=== PATIENT | female | born 1940 | race Caucasian/White ===

== ENCOUNTER → 2019-03-23 | Day surgery (SDC) | payer MEDICARE ==
[~2019-03-23] MED LIST: Bacitracin Oint 15 GM Tube ONE; Lactated Ringers 1,000 ML IV SCH; Lidocaine 1% 30 ML SDV ONE; Lidocaine 1% 4 ML ONE; Lidocaine 1% with EPINEPHrine 1:100,000 20 ML MDV ONE; Lidocaine 1%/Sod Bicarbonate in NS 8.4% 1 ML Syringe IDERM PRN; Propofol 200 MG/20 ML SDV ONE; Sodium Chloride 0.9% 10 ML Syringe FLUSH PRN; ePHEDrine/Normal Saline 25 MG/5 ML Syringe ONE; fentaNYL 100 MCG/2 ML SDV ONE
--- NOTE | 2019-03-23 08:59 | PCM.PREANE ---
Preanesthetic Assessment - Anesthesia/Transfusion/Family Hx Anesthesia History: Prior Anesthesia Without Reaction Family History of Anesthesia Reaction: No - Review of Systems General: Weakness Pulmonary: No Symptoms Cardiovascular: Lightheadedness (with standing), Other (Hypertension, elevated cholesterol) Gastrointestinal: No Symptoms Neurological: Pre-Existing Deficit (Parkinsons. Chronic low back pain, fibromyalgia, right hip pain. Uses a cane and/or a walker to get around. Has had back injections, nothing works for her pain. ), Tremors, Difficulty Walking , Gait Disturbance Other: Reports: None (Anemia), Thyroid Problems, Depression, Anxiety - Physical Assessment NPO Status Date: 03/23/19 NPO Status Time: 00:00 O2 Sat by Pulse Oximetry: 98 Respiratory Rate: 16 Vital Signs: Last Vital Signs Temp 36.8 C 03/23/19 08:00 Pulse 73 03/23/19 08:00 Resp 16 03/23/19 08:00 BP 129/53 L 03/23/19 08:00 Pulse Ox 98 03/23/19 08:00 Height: 1.63 m Weight: 97.069 kg ASA Class: 3 Mental Status: Alert & Oriented x3 Airway Class: Mallampati = 2 Dentition: Reports: Missing Tooth/Teeth (Denitist has been removing some teeth. Patient states her remaining teeth feel solid in her mouth. ), Caries Thyro-Mental Finger Breadths: 2 Mouth Opening Finger Breadths: 3 ROM/Head Extension: Full Lungs: Clear to Auscultation, Normal Respiratory Effort, Decreased Breath Sounds Cardiovascular: Regular Rate, Regular Rhythm - Allergies Allergies/Adverse Reactions: Allergies Allergy/AdvReac Type Severity Reaction Status Date / Time hydrocodone AdvReac Nausea and Verified 03/20/19 10:41 Vomiting - Acknowledgements Anesthesia Type Planned: MAC Pt an Appropriate Candidate for the Planned Anesthesia: Yes Alternatives and Risks of Anesthesia Discussed w Pt/Guardian: Yes Pt/Guardian Understands and Agrees with Anesthesia Plan: Yes Additional Comments: CBC pending. PreAnesthesia Questionnaire HEENT History: Reports: Impaired Vision Cardiovascular History: Reports: High Cholesterol, Hypertension Respiratory History: Reports: None Gastrointestinal History: Reports: None Genitourinary History: Reports: None TIP STRETCHER History: Reports: None Musculoskeletal History: Reports: Back Pain, Chronic, Fibromyalgia, Osteoarthritis, Other (See Below) Other Musculoskeletal History: DJD Neurological History: Reports: Parkinson's Psychiatric History: Reports: Anxiety, Depression, Other (See Below) Other Psychiatric History: insomnia Endocrine/Metabolic History: Reports: Hypothyroidism Hematologic History: 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 Immunologic History: Reports: None Dermatologic History: Reports: None - Past Surgical History Head Surgeries/Procedures: Reports: None HEENT Surgical History: Reports: Cataract Surgery, Tonsillectomy Cardiovascular Surgical History: Reports: None Respiratory Surgical History: Reports: None GI Surgical History: Reports: None Female Surgical History: Reports: Hysterectomy Male Surgical History: Reports: None Endocrine Surgical History: Reports: Other (See Below) Other Endocrine Surgeries/Procedures: radiofrequency ablation Neurological Surgical History: Reports: Other (See Below) Other Neurological Surgeries/Procedures: 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 Musculoskeletal Surgical History: Reports: None Oncologic Surgical History: Reports: Bone Marrow Transplant Dermatological Surgical History: Reports: None - SUBSTANCE USE Smoking Status *Q: Never Smoker Recreational Drug Use History: No - HOME MEDS Home Medications: Home Meds Carbidopa/Levodopa [Rytary ER 36.25 mg-145 mg Cap] 1 cap PO DAILY 03/20/19 [ History] DULoxetine HCl [Duloxetine HCl] 60 mg PO DAILY 03/20/19 [History] Furosemide 40 mg PO DAILY 03/20/19 [History] Levothyroxine 75 mcg PO DAILY 03/20/19 [History] Pramipexole Di-HCl [Mirapex] 1.5 mg PO BID 03/20/19 [History] Primidone [Mysoline] 50 mg PO BID 03/20/19 [History] Rosuvastatin [Crestor] 10 mg PO BEDTIME 03/20/19 [History] Spironolactone 50 mg PO DAILY 03/20/19 [History] diphenhydrAMINE [Benadryl] 50 mg PO BEDTIME PRN 03/20/19 [History] traZODone HCl [Trazodone HCl] 50 mg PO BEDTIME 03/20/19 [History] - CURRENT (IN HOUSE) MEDS Current Meds: Current Medications Lactated Ringer's (Ringers, Lactated) 1,000 mls @ 125 mls/hr IV ASDIRECTED CHRISTINE Stop: 03/23/19 23:00 Last Admin: 03/23/19 08:15 Dose: 125 mls/hr Lidocaine/Sodium Bicarbonate (Buffered Lidocaine 1% In Ns 8.4%) 0.25 ml IDERM ONETIME PRN PRN Reason: Prior to IV Start Stop: 03/23/19 18:00 Last Admin: 03/23/19 08:15 Dose: 0.25 ml Sodium Chloride (Saline Flush) 10 ml FLUSH ASDIRECTED PRN PRN Reason: Keep Vein Open Stop: 03/23/19 18:00 Discontinued Medications Bacitracin (Bacitracin Oint) Confirm Administered Dose 15 gm .ROUTE .STK-MED ONE Stop: 03/23/19 08:41 Ephedrine Sulfate (Ephedrine In Ns) Confirm Administered Dose 25 mg .ROUTE .STK- MED ONE Stop: 03/23/19 08:26 Fentanyl (Sublimaze) Confirm Administered Dose 100 mcg .ROUTE .STK-MED ONE Stop: 03/23/19 08:06 Lidocaine HCl (Xylocaine-Mpf 1%) Confirm Administered Dose 4 mls @ as directed .ROUTE .STK-MED ONE Stop: 03/23/19 08:05 Lidocaine HCl (Xylocaine-Mpf 1%) Confirm Administered Dose 30 ml .ROUTE .STK- MED ONE Stop: 03/23/19 08:39 Propofol (Diprivan 20 Ml) Confirm Administered Dose 400 mg .ROUTE .STK-MED ONE Stop: 03/23/19 08:06
--- NOTE | 2019-03-23 11:09 | PCM48HPAN ---
Post Anesthesia Note - EVALUATION WITHIN 48HRS OF ANESTHETIC Vital Signs in Normal Range: Yes Patient Participated in Evaluation: Yes Respiratory Function Stable: Yes Airway Patent: Yes Cardiovascular Function Stable: Yes Hydration Status Stable: Yes Pain Control Satisfactory: Yes Nausea and Vomiting Control Satisfactory: Yes Mental Status Recovered: Yes (no complaints) Pulse Rate: 87 SaO2: 100 Resp Rate: 16 Temperature: 97.6 F Blood Pressure: 131/62
--- NOTE | 2019-03-23 11:10 | PCM.OPNOTE ---
- General Post-Op/Procedure Note Date of Surgery/Procedure: 03/23/19 Operative Procedure(s): EGD with bx colonoscopy with polypectomy excision of two lesion on the back and bone on the left cheek Anesthesia Technique: Local, MAC Primary Surgeon: Johnathan Lopez EBL in mLs: 5 Complications: None Condition: Good
--- NOTE | 2019-03-24 06:58 | OR ---
DATE OF OPERATION: 03/23/2019 SURGEON: Johnathan Lopez MD PREOPERATIVE DIAGNOSIS: Anemia. POSTOPERATIVE DIAGNOSIS: Anemia. OPERATION PERFORMED: Colonoscopy to the ascending colon just above the cecum with polypectomy. ANESTHESIA: IV sedation. FINDINGS: Diminutive polyp just above the ileocecal valve, which was removed by cold biopsy forceps and some mild diverticulosis. There were no angiodysplasias, large tumor masses ulcerations, or notable hemorrhoids. DESCRIPTION OF PROCEDURE: The patient having been taken to the endoscopy room, connected to monitoring equipment for upper GI endoscopy. IV sedation continued for colonoscopy. She was placed in left lateral position. Perianal area showed some external hemorrhoids. Rectal exam showed good sphincter tone. A video Olympus colonoscope was then introduced into the rectum and threaded up to the ascending colon just above the cecum, where a polyp was noted, diminutive. This was removed completely by cold biopsy forceps because of the sigmoid loop, unable to advance the scope into the cecum. Prep was excellent. [place] Cleansing score grade A, and the scope was slowly withdrawn showing the ascending colon, transverse colon, descending colon, sigmoid colon, and rectum. The patient tolerated the procedure and sent to the recovery room in a stable condition. ESTIMATED BLOOD LOSS: MMODAL /[id number]
--- NOTE | 2019-03-24 06:58 | OR ---
DATE OF OPERATION: 03/23/2019 SURGEON: Johnathan Lopez MD PREOPERATIVE DIAGNOSIS: Anemia. POSTOPERATIVE DIAGNOSIS: Anemia. OPERATION PERFORMED: Esophagogastroduodenoscopy with biopsy of the GE junction. ANESTHESIA: IV sedation. FINDINGS: Second portion of the duodenum, duodenal bulb, and pyloric channel were normal. Antrum, body, cardia, fundus, and stomach were unremarkable. GE junction located at 30 cm showed some irritation, which was biopsied. There was no Z- line, but sharp. There was no evidence of Daniels's. Rest of the esophagus was unremarkable. DESCRIPTION OF PROCEDURE: The patient taken to the endoscopy room, placed in a supine position. Having been connected to monitoring and given IV sedation, a bite block was inserted. A video Olympus gastroscope was placed in a posterior oropharynx under direct vision, threaded past the cricopharyngeus down the esophagus and into the stomach. The stomach was insufflated. The scope passed through the pylorus to the second portion of the duodenum and then slowly withdrawn showing normal 2nd portion of the duodenum. Duodenal bulb, pyloric channel, antrum, body, and cardia of the stomach were viewed. J-maneuver was performed showing a small sliding hiatal hernia. At the GE junction, some irritation and some erythema were noted and this was biopsied. The rest of the Z-line was sharp. Rest of the esophagus viewed as the scope withdrawn normal. The patient tolerated the procedure. Specimen was sent to pathology in a labeled container. IV sedation continued for colonoscopy. ESTIMATED BLOOD LOSS: MMODAL /[id number]
--- NOTE | 2019-03-24 07:01 | OR ---
DATE OF OPERATION: 03/23/2019 SURGEON: Johnathan Lopez MD PREOPERATIVE DIAGNOSIS: Multiple skin lesions. POSTOPERATIVE DIAGNOSIS: Multiple skin lesions. OPERATION PERFORMED: Excision and layered closure. ANESTHESIA: Under IV sedation and local anesthetic. ESTIMATED BLOOD LOSS: About 5 mL. DESCRIPTION OF PROCEDURE: The patient was taken to the endoscopy room, connected to monitoring equipment, given IV sedation, and placed in the left lateral position. The lesion in the mid back and mid upper back were prepped with Betadine each and draped off in a sterile fashion. The lesion on the lower back was elliptically incised, proved to be a cyst measuring 1.75 cm. This was removed. The deep tissues were brought together with interrupted 3-0 Vicryl suture and the skin with interrupted 4-0 Prolene suture. Attention directed to the upper back. This lesion was quite irritating to the patient and red. This was then anesthetized with 1% Xylocaine and elliptically incised and sent to pathology. Lesion and margin measuring 1.5 cm. Deep tissues were undermined, brought together with interrupted 3-0 Vicryl suture and the skin with interrupted 4-0 Prolene suture. The patient was then allowed to be placed in the supine position. The lesion on the left cheek was identified. This was prepped with Betadine, draped off in a sterile fashion, and cleansed with Betadine. It was elliptically incised in Rain's lines. Skin edges were undermined, brought together with interrupted 3- 0 Vicryl suture and the skin with interrupted 4-0 Prolene suture. The lesion in the skin measured 2 cm. It was sent to pathology. The patient tolerated the procedure and sedation will be continued for endoscopy. MMODAL /[id number]
== END | disposition home or self-care (01) ==
LOC: JD.SDS 07:48
PROVIDERS: ATTEND Surgery
DX: D12.2 Benign neoplasm of ascending colon (principal); D64.9 Anemia, unspecified; D36.17 Benign neoplasm of peripheral nerves and autonomic nervous system of trunk, unspecified; L72.0 Epidermal cyst; L82.1 Other seborrheic keratosis; I10 Essential (primary) hypertension; E03.9 Hypothyroidism, unspecified; G20 Parkinson's disease; F41.1 Generalized anxiety disorder; F32.9 Major depressive disorder, single episode, unspecified; M79.7 Fibromyalgia; D69.6 Thrombocytopenia, unspecified; E78.00 Pure hypercholesterolemia, unspecified; R73.9 Hyperglycemia, unspecified; H54.7 Unspecified visual loss; Z88.5 Allergy status to narcotic agent; Z79.899 Other long term (current) drug therapy
CPT/HCPCS: 11402; 11442; 12031; 12051; 36415; 43239; 45380; 85025; 88304; 88305; A9270; J2001; J2704; J3010; J7050; J7120; 00813

== ENCOUNTER 2019-08-27 10:50 | Emergency (ER) | payer MEDICARE ==
--- NOTE | 2019-08-27 11:51 | EDM.PDOC ---
<Ifeoma Leonard - Last Filed: 08/27/19 12:41> ED HPI GENERAL MEDICAL PROBLEM - General Chief Complaint: General Stated Complaint: [place]OD [place] LOW Time Seen by Provider: 08/27/19 11:23 Source of Information: Reports: Patient History Limitations: Reports: Other (recent memory issues) - History of Present Illness INITIAL COMMENTS - FREE TEXT/NARRATIVE: 79 year old female who presents to the ED with low hemoglobin. Was seen at [facility] yesterday and lab work was completed. Hemoglobin was low at 7. Pt reports dizziness, shortness of breath x a few months, however she cant remember why she was at the clinic yesterday. Pt has some recent memory issues. Denies palpitations, cough, fever, chills or syncope. Denies arias red blood in her stool or hemorrhoids. She has not been taking her lasix because of frequent incontinence. - Related Data Allergies Allergy/AdvReac Type Severity Reaction Status Date / Time hydrocodone AdvReac Nausea and Verified 08/27/19 11:29 Vomiting Home Meds: Home Meds Carbidopa/Levodopa [Rytary ER 36.25 mg-145 mg Cap] 1 cap PO DAILY 03/20/19 [ History] DULoxetine HCl [Duloxetine HCl] 60 mg PO DAILY 03/20/19 [History] Furosemide 40 mg PO DAILY 03/20/19 [History] Levothyroxine 75 mcg PO DAILY 03/20/19 [History] Pramipexole Di-HCl [Mirapex] 1.5 mg PO BID 03/20/19 [History] Primidone [Mysoline] 50 mg PO BID 03/20/19 [History] Rosuvastatin [Crestor] 10 mg PO BEDTIME 03/20/19 [History] Spironolactone 50 mg PO DAILY 03/20/19 [History] diphenhydrAMINE [Benadryl] 50 mg PO BEDTIME PRN 03/20/19 [History] traZODone HCl [Trazodone HCl] 50 mg PO BEDTIME 03/20/19 [History] Past Medical History HEENT History: Reports: Impaired Vision Cardiovascular History: Reports: High Cholesterol, Hypertension Respiratory History: Reports: None Gastrointestinal History: Reports: None Genitourinary History: Reports: None 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: 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 Musculoskeletal History: Reports: Back Pain, Chronic, Fibromyalgia, Osteoarthritis, Other (See Below) Other Musculoskeletal History: DJD Neurological History: Reports: Parkinson's Psychiatric History: Reports: Anxiety, Depression, Other (See Below) Other Psychiatric History: insomnia Endocrine/Metabolic History: Reports: Hypothyroidism Hematologic History: 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 Immunologic History: Reports: None Dermatologic History: Reports: None - Past Surgical History Head Surgeries/Procedures: Reports: None HEENT Surgical History: Reports: Cataract Surgery, Tonsillectomy Cardiovascular Surgical History: Reports: None Respiratory Surgical History: Reports: None GI Surgical History: Reports: None Female Surgical History: Reports: Hysterectomy Endocrine Surgical History: Reports: Other (See Below) Other Endocrine Surgeries/Procedures: radiofrequency ablation Neurological Surgical History: Reports: Other (See Below) Other Neurological Surgeries/Procedures: 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 Denies: Cough Cardiovascular: Reports: Dyspnea on Exertion, Edema, Lightheadedness. Denies: Chest Pain, Orthopnea, Palpitations, Syncope Endocrine: Reports: Fatigue GI/Abdominal: Denies: Abdominal Pain, Black Stool, Bloody Stool, Constipation, Diarrhea, Melena, Nausea, Vomiting : Reports: Incontinence. Denies: Dysuria Musculoskeletal: Reports: Back Pain Skin: Reports: Pallor Neurological: Reports: Dizziness Psychiatric: Reports: Other (forgetful of recent events) Hematologic/Lymphatic: Reports: Anemia. Denies: Easy Bleeding Immunologic: Reports: No Symptoms ED EXAM, GENERAL - Physical Exam Exam: See Below Exam Limited By: No Limitations General Appearance: Alert, WD/WN, No Apparent Distress Eye Exam: Bilateral Eye: PERRL Ears: Normal External Exam Nose: Normal Inspection Throat/Mouth: Normal Inspection, Normal Lips, Normal Teeth, Normal Oropharynx, Normal Voice, No Airway Compromise Head: Atraumatic, Normocephalic Neck: Normal Inspection, Supple, Non-Tender, Full Range of Motion Respiratory/Chest: No Respiratory Distress, Lungs Clear, Normal Breath Sounds, Chest Non-Tender Cardiovascular: Normal Peripheral Pulses, Regular Rate, Rhythm, Systolic Murmur GI/Abdominal: Normal Bowel Sounds, Soft, Non-Tender, No Abnormal Bruit (Female) Exam: Deferred Rectal (Female) Exam: Normal Exam, Normal Rectal Tone. No: Black Stool, Bloody Stool, Heme - Stool, Hemorrhoids, Tenderness Back Exam: Normal Inspection, Decreased Range of Motion (history of chronic back pain) Extremities: Normal Inspection, Normal Range of Motion, Non-Tender, Pedal Edema , Pallor Neurological: Alert, Oriented, Normal Cognition, Memory Loss Recent Events Psychiatric: Normal Affect, Normal Mood Skin Exam: Warm, Dry, Intact, No Rash, Pallor Course - Vital Signs Last Recorded V/S: Last Vital Signs Temp 98.0 F 08/27/19 11:21 Pulse 79 08/27/19 11:21 Resp 14 08/27/19 11:21 BP 153/59 H 08/27/19 11:21 Pulse Ox 100 08/27/19 11:21 - Orders/Labs/Meds Orders: Active Orders 24 hr Category Date Time Status EKG 12 Lead [EKG Documentation Completion] [RC] STAT Care 08/27/19 11:50 Active Chest 2V [CR] Stat Exams 08/27/19 11:47 Taken ANTIBODY IDENTIFICATION [BBK] Stat Lab 08/27/19 11:45 Results HAPTOGLOBIN [REF] Stat Lab 08/27/19 11:45 Received RED BLOOD CELLS LP [BBK] Stat Lab 08/27/19 11:45 Results TYPE AND SCREEN [BBK] Stat Lab 08/27/19 11:45 Results UA W/MICROSCOPIC [URIN] Stat Lab 08/27/19 14:05 Received Transfuse Red Blood Cells [COMM] Stat Oth 08/27/19 12:26 Ordered Labs: Laboratory Tests 08/27/19 08/27/19 08/27/19 Range/Units 11:45 11:45 11:45 WBC 3.26 L (3.98-10.04) K/mm3 RBC 3.11 L (3.98-5.22) M/mm3 Hgb 5.9 L* D (11.2-15.7) gm/dl Hct 22.6 L (34.1-44.9) % MCV 72.7 L D (79.4-94.8) fl MCH 19.0 L (25.6-32.2) pg MCHC 26.1 L (32.2-35.5) g/dl RDW Std Deviation 47.6 H (36.4-46.3) fL Plt Count 75 L (182-369) K/mm3 MPV 11.3 (9.4-12.3) fl Neut % (Auto) 64.5 (34.0-71.1) % Lymph % (Auto) 23.0 (19.3-51.7) % [place] % (Auto) 10.4 (4.7-12.5) % Eos % (Auto) 1.2 (0.7-5.8) Baso % (Auto) 0.6 (0.1-1.2) % Neut # (Auto) 2.10 (1.56-6.13) K/mm3 Lymph # (Auto) 0.75 L (1.18-3.74) K/mm3 [place] # (Auto) 0.34 (0.24-0.36) K/mm3 Eos # (Auto) 0.04 (0.04-0.36) K/mm3 Baso # (Auto) 0.02 (0.01-0.08) K/mm3 Manual Slide Review Abnormal smear Percent Retic (0.50-1.70) % PT (9.7-12.0) SECONDS INR APTT (22-31) SECONDS Sodium 139 (136-145) mEq/L Potassium 4.9 (3.5-5.1) mEq/L Chloride 106 (98-107) mEq/L Carbon Dioxide 27 (21-32) mEq/L Anion Gap 10.9 (5-15) BUN 21 H (7-18) mg/dL Creatinine 0.9 (0.55-1.02) mg/dL Est Cr Clr Drug Dosing 43.77 mL/min Estimated GFR (MDRD) > 60 (>60) mL/min BUN/Creatinine Ratio 23.3 H (14-18) Glucose 106 (83-115) mg/dL Calcium 9.0 (8.5-10.1) mg/dL Iron 15 L (50-170) ug/dL TIBC 379 (100-400) ug/dL % Saturation 4 L (20-55) % Transferrin 303 (202-364) mg/dL Ferritin (8-252) ng/ml Total Bilirubin 0.7 (0.2-1.0) mg/dL AST 24 (15-37) U/L ALT 11 L (14-59) U/L Alkaline Phosphatase 96 (46-116) U/L Troponin I 0.024 (0.00-0.056) ng/mL Total Protein 6.1 L (6.4-8.2) g/dl Albumin 3.4 (3.4-5.0) g/dl Globulin 2.7 gm/dL Albumin/Globulin Ratio 1.3 (1-2) Vitamin B12 (193-986) pg/ml TSH 3rd Generation 3.985 H (0.358-3.74) uIU/mL Blood Type Gel Antibody Screen Crossmatch 08/27/19 08/27/19 08/27/19 Range/Units 11:45 11:45 11:45 WBC (3.98-10.04) K/mm3 RBC (3.98-5.22) M/mm3 Hgb (11.2-15.7) gm/dl Hct (34.1-44.9) % MCV (79.4-94.8) fl MCH (25.6-32.2) pg MCHC (32.2-35.5) g/dl RDW Std Deviation (36.4-46.3) fL Plt Count (182-369) K/mm3 MPV (9.4-12.3) fl Neut % (Auto) (34.0-71.1) % Lymph % (Auto) (19.3-51.7) % [place] % (Auto) (4.7-12.5) % Eos % (Auto) (0.7-5.8) Baso % (Auto) (0.1-1.2) % Neut # (Auto) (1.56-6.13) K/mm3 Lymph # (Auto) (1.18-3.74) K/mm3 [place] # (Auto) (0.24-0.36) K/mm3 Eos # (Auto) (0.04-0.36) K/mm3 Baso # (Auto) (0.01-0.08) K/mm3 Manual Slide Review Percent Retic 1.79 H (0.50-1.70) % PT (9.7-12.0) SECONDS INR APTT (22-31) SECONDS Sodium (136-145) mEq/L Potassium (3.5-5.1) mEq/L Chloride (98-107) mEq/L Carbon Dioxide (21-32) mEq/L Anion Gap (5-15) BUN (7-18) mg/dL Creatinine (0.55-1.02) mg/dL Est Cr Clr Drug Dosing mL/min Estimated GFR (MDRD) (>60) mL/min BUN/Creatinine Ratio (14-18) Glucose (83-115) mg/dL Calcium (8.5-10.1) mg/dL Iron (50-170) ug/dL TIBC (100-400) ug/dL % Saturation (20-55) % Transferrin (202-364) mg/dL Ferritin (8-252) ng/ml Total Bilirubin (0.2-1.0) mg/dL AST (15-37) U/L ALT (14-59) U/L Alkaline Phosphatase (46-116) U/L Troponin I (0.00-0.056) ng/mL Total Protein (6.4-8.2) g/dl Albumin (3.4-5.0) g/dl Globulin gm/dL Albumin/Globulin Ratio (1-2) Vitamin B12 439 (193-986) pg/ml TSH 3rd Generation (0.358-3.74) uIU/mL Blood Type O NEGATIVE Gel Antibody Screen Positive Crossmatch See Detail 08/27/19 08/27/19 Range/Units 11:45 13:55 WBC (3.98-10.04) K/mm3 RBC (3.98-5.22) M/mm3 Hgb (11.2-15.7) gm/dl Hct (34.1-44.9) % MCV (79.4-94.8) fl MCH (25.6-32.2) pg MCHC (32.2-35.5) g/dl RDW Std Deviation (36.4-46.3) fL Plt Count (182-369) K/mm3 MPV (9.4-12.3) fl Neut % (Auto) (34.0-71.1) % Lymph % (Auto) (19.3-51.7) % [place] % (Auto) (4.7-12.5) % Eos % (Auto) (0.7-5.8) Baso % (Auto) (0.1-1.2) % Neut # (Auto) (1.56-6.13) K/mm3 Lymph # (Auto) (1.18-3.74) K/mm3 [place] # (Auto) (0.24-0.36) K/mm3 Eos # (Auto) (0.04-0.36) K/mm3 Baso # (Auto) (0.01-0.08) K/mm3 Manual Slide Review Percent Retic (0.50-1.70) % PT 11.8 (9.7-12.0) SECONDS INR 1.09 APTT 23 (22-31) SECONDS Sodium (136-145) mEq/L Potassium (3.5-5.1) mEq/L Chloride (98-107) mEq/L Carbon Dioxide (21-32) mEq/L Anion Gap (5-15) BUN (7-18) mg/dL Creatinine (0.55-1.02) mg/dL Est Cr Clr Drug Dosing mL/min Estimated GFR (MDRD) (>60) mL/min BUN/Creatinine Ratio (14-18) Glucose (83-115) mg/dL Calcium (8.5-10.1) mg/dL Iron (50-170) ug/dL TIBC (100-400) ug/dL % Saturation (20-55) % Transferrin (202-364) mg/dL Ferritin 6 L (8-252) ng/ml Total Bilirubin (0.2-1.0) mg/dL AST (15-37) U/L ALT (14-59) U/L Alkaline Phosphatase (46-116) U/L Troponin I (0.00-0.056) ng/mL Total Protein (6.4-8.2) g/dl Albumin (3.4-5.0) g/dl Globulin gm/dL Albumin/Globulin Ratio (1-2) Vitamin B12 (193-986) pg/ml TSH 3rd Generation (0.358-3.74) uIU/mL Blood Type Gel Antibody Screen Crossmatch - Re-Assessments/Exams Free Text/Narrative Re-Assessment/Exam: 08/27/19 12:05 I ordered a CBC, CMP, TSH, TIBC, FERRITIN, IRON, UA, chest xray, Troponin, and EKG. Free Text/Narrative Re-Assessment/Exam: 08/27/19 12:06 Rectal exam performed. Occult slide was negative. No bleeding noted. Free Text/Narrative Re-Assessment/Exam: 08/27/19 12:28 The patient's hemoglobin is 5.9. Two units of PRBC's ordered. 08/27/19 12:42 Retic count, PT, aPTT ordered Departure - Departure Disposition: DC/Tfer to [facility] Clinical Impression: Weakness generalized Anemia Qualifiers: Anemia type: other cause Other causes of anemia: other cause, not classified Qualified Code(s): D64.89 - Other specified anemias - Discharge Information Referrals: Cesia Guthrie NP [Primary Care Provider] - Forms: ED Department Discharge - My Orders Last 24 Hours: My Active Orders 08/27/19 11:45 ANTIBODY IDENTIFICATION [BBK] Stat HAPTOGLOBIN [REF] Stat RED BLOOD CELLS LP [BBK] Stat TYPE AND SCREEN [BBK] Stat 08/27/19 12:26 Transfuse Red Blood Cells [COMM] Stat - Assessment/Plan Last 24 Hours: My Active Orders 08/27/19 11:45 ANTIBODY IDENTIFICATION [BBK] Stat HAPTOGLOBIN [REF] Stat RED BLOOD CELLS LP [BBK] Stat TYPE AND SCREEN [BBK] Stat 08/27/19 12:26 Transfuse Red Blood Cells [COMM] Stat <Jm Jacobs - Last Filed: 08/27/19 14:33> ED HPI GENERAL MEDICAL PROBLEM - History of Present Illness Onset: Gradual Duration: Week(s): Severity: Moderate Improves with: Reports: None Worsens with: Reports: None Associated Symptoms: Reports: Shortness of Breath. Denies: Chest Pain, Cough, Fever/Chills, Headaches, Nausea/Vomiting EKG INTERPRETATION EKG Date: 08/27/19 Time: 11:51 Rhythm: NSR Rate (Beats/Min): 78 [place]: Normal P-Wave: Present QRS: Normal ST-T: Normal QT: Normal Course - Re-Assessments/Exams Free Text/Narrative Re-Assessment/Exam: 08/27/19 14:13 I examined the patient myself and I agree with Ifeoma's assessment and plan. I ordered labs, EKG, and labs. Her EKG shows a NSR with no acute changes. Her CXR shows nothing acute. Her WBC is low at 3.26. Her Hgb is down to 5.9. Yesterday her Hgb was 7. Her platelets are 75. Yesterday they were 79. Her PT and PTT look good. Her CMP looks good. Her troponin was negative. Her TSH was slightly elevated at 3.985. Lab called and the patient has antibodies. They tell me it will be tomorrow night or Saturday before we will have blood. She dropped form 7 to 5.9 in one day. I feel it would be safer to have her in [place] where they have more resources. I called [facility] in [place] and talked with Dr Edwards and she accepted the patient. 08/27/19 14:31 The patient's rectal was guiac negative. She had a bone marrow study done in [place] that looked good. I am not sure why she is anemic at this time. Departure - Departure Time of Disposition: 14:30 Condition: Fair
--- NOTE | 2019-08-28 08:01 | CR ---
Chest: Two views of the chest were obtained. Comparison: Prior chest x-ray of 01/30/18. Heart size and mediastinum are within normal limits. Mitral annulus calcification is partially seen. Lungs are clear with no acute parenchymal change. Bony structures show mild degenerative change within the spine. Impression: 1. Findings which are felt to be incidental as noted above. 2. Nothing acute is appreciated on two-view chest x-ray. Diagnostic code #2
== END 2019-08-27 15:50 ==
LOC: JD.ED 10:50
DX: D64.89 Other specified anemias (principal); I10 Essential (primary) hypertension; E78.00 Pure hypercholesterolemia, unspecified; G20 Parkinson's disease; F32.9 Major depressive disorder, single episode, unspecified; E03.9 Hypothyroidism, unspecified; Z88.5 Allergy status to narcotic agent; Z79.899 Other long term (current) drug therapy; Z79.890 Hormone replacement therapy
CPT/HCPCS: 36415; 71046; 71046-26; 80053; 81001; 82607; 82728; 83010; 83540; 84443; 84466; 84484; 85025; 85045; 85610; 85730; 86850; 86870; 86900; 86901; 93005; 93010; 99285; 99285-25

== ENCOUNTER 2020-11-01 03:17 | Emergency (ER) | payer MEDICARE, OTHER ==
[2020-11-01] MEDS ORDERED: Ondansetron 4 MG/2 ML SDV IVPUSH ONE (04:20)
--- NOTE | 2020-11-01 04:24 | EDM.PDOC ---
<Luis Cisneros - Last Filed: 11/01/20 07:03> ED HPI GENERAL MEDICAL PROBLEM - General Chief Complaint: Abdominal Pain Stated Complaint: ABDOMINAL PAIN Time Seen by Provider: 11/01/20 04:00 Source of Information: Reports: Patient History Limitations: Reports: No Limitations - History of Present Illness INITIAL COMMENTS - FREE TEXT/NARRATIVE: Mrs. Benton is a very pleasant 80-year-old woman who now presents the ED with right-sided abdominal pain that began around 19:00 last night. She is unable to describe the character of the pain, but states that it radiates from her right upper quadrant downward to the right lower quadrant as well his to her right mid-back. She states that the pain waxes and wanes, currently feeling better than prior to her coming to the ED. She states that it may feel better if she takes a deep breath, otherwise, she has not identified any modifiers. She developed nausea around the same time as the pain developed, however, she has not vomited. No recent fever, constipation, diarrhea, or urinary symptoms. No prior similar symptoms. The patient states that she drinks some charcoal solution around 21:00, which did not help, otherwise, no [id number] or home remedies. The patient last ate around 19:00 last night. Here in the ED, the patient's initial BP is found to be elevated at 164/71, otherwise, she is hemodynamically stable, afebrile, saturating 100% on room air. Prior to 19:00 last night, the patient denies having a recent fever, chills, sore throat, ear pain, nasal or sinus congestion, cough, dyspnea, chest pain, palpitations, nausea, vomiting, constipation, diarrhea, abdominal pain, urinary symptoms, recent weight gain or weight loss, recent bloody bowel movements or black bowel movements, recent joint aches, headaches, or rashes. The patient's PCP is Cesia Zheng NP. Her Neurologist is Dr. Coco Martino. Her Donor Processor is Dr. Lance Black. She does not recall the name of her Urologist. She has not received an influenza vaccine this season, and declined an offer to receive one here in the ED. Right Abdomen Pain Score (Numeric/FACES): 8 - Related Data Allergies Allergy/AdvReac Type Severity Reaction Status Date / Time hydrocodone AdvReac Nausea and Verified 11/01/20 04:14 Vomiting Home Meds: Home Meds DULoxetine HCl [Duloxetine HCl] 60 mg PO DAILY 03/20/19 [History] Levothyroxine 100 mcg PO DAILY 03/20/19 [History] Rosuvastatin [Crestor] 10 mg PO BEDTIME 03/20/19 [History] Spironolactone 50 mg PO DAILY 03/20/19 [History] diphenhydrAMINE [Benadryl] 50 mg PO BEDTIME PRN 03/20/19 [History] traZODone HCl [Trazodone HCl] 50 mg PO BEDTIME 03/20/19 [History] Ferrous Sulfate [Ferosul] 1 tab PO DAILY 11/01/20 [History] Hyoscyamine Sulfate [Levsin-Sl] 0.125 mg SL ASDIRECTED #10 tab.subl 11/01/20 [Rx] Pregabalin [Lyrica] 75 mg PO DAILY 11/01/20 [History] Past Medical History HEENT History: Reports: Impaired Vision Cardiovascular History: Reports: High Cholesterol Genitourinary History: Reports: Urinary Incontinence (stress incontinence) Musculoskeletal History: Reports: Osteoarthritis Neurological History: Reports: Other (See Below) (Essential tremor) Psychiatric History: Reports: Anxiety, Depression, Other (See Below) (insomnia, fibromyalgia) Endocrine/Metabolic History: Reports: Hypothyroidism, Obesity/BMI 30+ Hematologic History: 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 - Past Surgical History Head Surgeries/Procedures: Reports: 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) HEENT Surgical History: Reports: Cataract Surgery (bilateral), Tonsillectomy Female Surgical History: Reports: Hysterectomy (complete) Oncologic Surgical History: Reports: Other (See Below) (Bone marrow biopsy) Social & Family History - Tobacco Use Tobacco Use Status *Q: Never Tobacco User - Caffeine Use Caffeine Use: Reports: None - Alcohol Use Alcohol Use History: No - Recreational Drug Use Recreational Drug Use: No - Living Situation & Occupation Living situation: Reports: , Alone Occupation: Retired ED ROS GENERAL - Review of Systems Review Of Systems: Comprehensive ROS is negative, except as noted in HPI. ED EXAM, GI/ABD - Physical Exam Exam: See Below Exam Limited By: No Limitations General Appearance: Alert, WD/WN, No Apparent Distress Eyes: Bilateral: Normal Appearance, EOMI Ears: Normal External Exam, Hearing Grossly Normal Nose: Normal Inspection Throat/Mouth: Normal Inspection, Normal Lips, Normal Voice, No Airway Compromise Head: Atraumatic, Normocephalic Neck: Normal Inspection, Full Range of Motion Respiratory/Chest: No Respiratory Distress, Lungs Clear, Normal Breath Sounds, No Accessory Muscle Use Cardiovascular: Normal Peripheral Pulses, Regular Rate, Rhythm, No Gallop, No JVD, No Murmur, No Rub GI/Abdominal Exam: Normal Bowel Sounds, Soft, No Organomegaly, No Distention, No Abnormal Bruit, No Mass, Tender (Significant, to the right upper quadrant only. Essentially nontender elsewhere. Lockett's sign absent, however, that may have been due to the patient's body habitus.) Back Exam: Normal Inspection, Full Range of Motion. No: CVA Tenderness (L), CVA Tenderness (R) Extremities: Normal Inspection, Normal Range of Motion, No Pedal Edema, Normal Capillary Refill Neurological: Alert, Oriented, Normal Cognition, No Motor/Sensory Deficits Psychiatric: Normal Affect Skin Exam: Warm, Dry, Intact, Normal Color, No Rash Course - Re-Assessments/Exams Free Text/Narrative Re-Assessment/Exam: 11/01/20 04:22 As above, the patient developed right-sided abdominal pain and nausea around 19:00 last night, right around the time she finished eating. She is quite tender to the right upper quadrant. Her presentation is most concerning for acute cholecystitis. I have ordered a work-up that includes an ultrasound of the right upper quadrant, along with blood work, and a CT of the abdomen and pelvis with oral and IV contrast. I have also ordered a swab for the SARS-CoV-2 virus in the event that she requires admission. In the meantime, the patient will be given IV fluid and IV Zofran. She declined an offer for pain medication at this time. 11/01/20 05:36 The patient's CBC is remarkable for thrombocytopenia of 44,000, and is otherwise unremarkable. Her CMP is remarkable for a Cr slightly elevated at 1.3, with a BUN normal at 15. She has mild hyperglycemia of 155. Her TBil is a slightly elevated at 1.2. Her AST is slightly elevated at 38 with an ALT normal at 41, and her alkaline phosphatase is slightly elevated at 126, with the remainder of her CMP being unremarkable. Her magnesium level is within normal limits at 1.9. Her lipase level is within normal limits at 130. Ultrasound of the right upper quadrant is read by [facility] as "Cholelithiasis associated with the positive sonographic Lockett sign. The sonographic findings with [sic] suggest acute cholecystitis. Please correlate with the clinical setting and serum bilirubin as clinically indicated." 11/01/20 06:44 The patient's swab for the SARS-CoV-2 virus has returned negative. 11/01/20 07:[address] Pappas, and care of the patient turned over to him at this time, for change of shift. Departure - Departure Disposition: Home, Self-Care 01 Clinical Impression: Biliary colic, Thrombocytopenia Cirrhosis of liver with ascites Qualifiers: Hepatic cirrhosis type: unspecified hepatic cirrhosis Qualified Code(s): K74.60 - Unspecified cirrhosis of liver; R18.8 - Other ascites - Discharge Information *PRESCRIPTION DRUG MONITORING PROGRAM REVIEWED*: Not Applicable *COPY OF PRESCRIPTION DRUG MONITORING REPORT IN PATIENT MAAME: Not Applicable Prescriptions: Hyoscyamine Sulfate [Levsin-Sl] 0.125 mg SL ASDIRECTED #10 tab.subl Instructions: Abdominal Pain, Adult, [id number] Referrals: Cesia Guthrie NP [Primary Care Provider] - Coco Martino MD [Ordering Only Provider] - Lance Black MD [Ordering Only Provider] - Forms: ED Department Discharge Additional Instructions: Evaluation in the emergency room overnight by Dr. Cisneros due to development of severe right upper quadrant abdominal pain rating into your back with associated nausea without vomiting. History and physical exam are compatible with acute biliary colic. Ultrasound does confirm multiple stones within the gallbladder and mild gallbladder wall thickening. CT exam reveals similar findings but also confirms cirrhosis of the liver with some fluid around the liver called ascites. Spleen is enlarged indicating that the cirrhosis of the liver has been ongoing for many years. 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 Platelet count remains low at 44,000 which you indicated has been chronic for you. No indications for surgical intervention at this time are evident. Pain settle down on its own typical of gallbladder attack which usually last between 2 and 8 hours. Try to follow a fat free/low-fat diet is much as possible to prevent recurrence of biliary colic. I did send you home with a prescription for Levsin tablet that can be taken under the tongue for this type of pain you take 1 immediately when you develop the pain and repeat in 10 minutes to see if it will alleviate the gallbladder attack. If 2 tablets do not work further tablets would not be useful. You would need to come back to the emergency room for IV fluids and pain management. If gallbladder continues to be problematic and surgery is required it would have to be done in [place] where there is availability of platelets as you would be considered very high risk surgery due to potential for bleeding. Sepsis Event Note (ED) - Evaluation Sepsis Screening Result: No Definite Risk <Christopher Leiva - Last Filed: 11/01/20 08:43> Course - Vital Signs Last Recorded V/S: Last Vital Signs Temp 36.4 C 11/01/20 07:50 Pulse 90 11/01/20 07:50 Resp 16 11/01/20 07:50 BP 123/64 11/01/20 07:50 Pulse Ox 98 11/01/20 07:50 - Orders/Labs/Meds Orders: Active Orders 24 hr Category Date Time Status Insert Silverio Catheter [Insert Urinary Catheter] [OM.PC] Care 11/01/20 07:40 Ordered Stat Urinary Catheter Assessment [RC] ASDIRECTED Care 11/01/20 07:40 Active Abdomen Ltd [US] Stat Exams 11/01/20 04:19 Taken Sodium Chloride 0.9% [Normal Saline] 1,000 ml Med 11/01/20 04:30 Active IV ASDIRECTED Medication Orders Sodium Chloride (Normal Saline) 1,000 mls @ 150 mls/hr IV ASDIRECTED CHRISTINE Last Admin: 11/01/20 04:31 Dose: 150 mls/hr Documented by: CARLOS Labs: Laboratory Tests 11/01/20 11/01/20 11/01/20 Range/Units 04:20 04:40 04:55 WBC 4.53 (3.98-10.04) K/mm3 RBC 4.14 (3.98-5.22) M/mm3 Hgb 12.8 D (11.2-15.7) gm/dl Hct 40.0 (34.1-44.9) % MCV 96.6 H D (79.4-94.8) fl MCH 30.9 (25.6-32.2) pg MCHC 32.0 L (32.2-35.5) g/dl RDW Std Deviation 49.3 H (36.4-46.3) fL Plt Count 44 L (182-369) K/mm3 MPV 11.1 (9.4-12.3) fl Neutrophils % (Manual) 86 H (40-60) % Band Neutrophils % 0 (0-10) % Lymphocytes % (Manual) 11 L (20-40) % Atypical Lymphs % 0 % Monocytes % (Manual) 0 L (2-10) % Eosinophils % (Manual) 3 (0.7-5.8) % Basophils % (Manual) 0 L (0.1-1.2) Platelet Estimate Decreased Plt Morphology Comment See note RBC Morph Comment Normal Sodium 143 (136-145) mEq/L Potassium 3.5 (3.5-5.1) mEq/L Chloride 107 (98-107) mEq/L Carbon Dioxide 29 (21-32) mEq/L Anion Gap 10.5 (5-15) BUN 15 (7-18) mg/dL Creatinine 1.3 H (0.55-1.02) mg/dL Est Cr Clr Drug Dosing 29.80 mL/min Estimated GFR (MDRD) 39 (>60) mL/min BUN/Creatinine Ratio 11.5 L (14-18) Glucose 155 H (83-115) mg/dL Calcium 9.6 (8.5-10.1) mg/dL Magnesium 1.9 (1.8-2.4) mg/dl Total Bilirubin 1.2 H (0.2-1.0) mg/dL AST 38 H (15-37) U/L ALT 41 (14-59) U/L Alkaline Phosphatase 126 H (46-116) U/L Total Protein 6.3 L (6.4-8.2) g/dl Albumin 3.2 L (3.4-5.0) g/dl Globulin 3.1 gm/dL Albumin/Globulin Ratio 1.0 (1-2) Lipase 130 (73-393) U/L Urine Color (Yellow) Urine Appearance (Clear) Urine pH (5.0-8.0) Ur Specific [place] (1.005-1.030) Urine Protein (Negative) Urine Glucose (UA) (Negative) Urine Ketones (Negative) Urine Occult Blood (Negative) Urine Nitrite (Negative) Urine Bilirubin (Negative) Urine Urobilinogen (0.2-1.0) Ur Leukocyte Esterase (Negative) Urine RBC (0-5) /hpf Urine WBC (0-5) /hpf Ur Squamous Epith Cells (0-5) /hpf Urine Bacteria (FEW) /hpf Urine Mucus (FEW) /hpf SARS-CoV-2 RNA (TYRONE) Negative (NEGATIVE) 11/01/20 Range/Units 07:44 WBC (3.98-10.04) K/mm3 RBC (3.98-5.22) M/mm3 Hgb (11.2-15.7) gm/dl Hct (34.1-44.9) % MCV (79.4-94.8) fl MCH (25.6-32.2) pg MCHC (32.2-35.5) g/dl RDW Std Deviation (36.4-46.3) fL Plt Count (182-369) K/mm3 MPV (9.4-12.3) fl Neutrophils % (Manual) (40-60) % Band Neutrophils % (0-10) % Lymphocytes % (Manual) (20-40) % Atypical Lymphs % % Monocytes % (Manual) (2-10) % Eosinophils % (Manual) (0.7-5.8) % Basophils % (Manual) (0.1-1.2) Platelet Estimate Plt Morphology Comment RBC Morph Comment Sodium (136-145) mEq/L Potassium (3.5-5.1) mEq/L Chloride (98-107) mEq/L Carbon Dioxide (21-32) mEq/L Anion Gap (5-15) BUN (7-18) mg/dL Creatinine (0.55-1.02) mg/dL Est Cr Clr Drug Dosing mL/min Estimated GFR (MDRD) (>60) mL/min BUN/Creatinine Ratio (14-18) Glucose (83-115) mg/dL Calcium (8.5-10.1) mg/dL Magnesium (1.8-2.4) mg/dl Total Bilirubin (0.2-1.0) mg/dL AST (15-37) U/L ALT (14-59) U/L Alkaline Phosphatase (46-116) U/L Total Protein (6.4-8.2) g/dl Albumin (3.4-5.0) g/dl Globulin gm/dL Albumin/Globulin Ratio (1-2) Lipase (73-393) U/L Urine Color Light yellow (Yellow) Urine Appearance Clear (Clear) Urine pH 6.5 (5.0-8.0) Ur Specific [place] 1.010 (1.005-1.030) Urine Protein Negative (Negative) Urine Glucose (UA) Negative (Negative) Urine Ketones Negative (Negative) Urine Occult Blood Negative (Negative) Urine Nitrite Positive H (Negative) Urine Bilirubin Negative (Negative) Urine Urobilinogen 0.2 (0.2-1.0) Ur Leukocyte Esterase Negative (Negative) Urine RBC 0-5 (0-5) /hpf Urine WBC 0-5 (0-5) /hpf Ur Squamous Epith Cells 0-5 (0-5) /hpf Urine Bacteria Many H (FEW) /hpf Urine Mucus Not seen (FEW) /hpf SARS-CoV-2 RNA (TYRONE) (NEGATIVE) Meds: Medications Generic Name Dose Route Start Last Admin Trade Name Freq PRN Reason Stop Dose Admin Sodium Chloride 1,000 mls @ 150 mls/hr 11/01/20 04:30 11/01/20 04:31 Normal Saline IV 150 mls/hr ASDIRECTED CHRISTINE Administration Discontinued Medications Generic Name Dose Route Start Last Admin Trade Name Freq PRN Reason Stop Dose Admin Iopamidol 100 ml 11/01/20 06:54 11/01/20 06:55 Isovue-300 (61%) IVPUSH 11/01/20 06:55 100 ml ONETIME ONE Administration Ondansetron HCl 4 mg 11/01/20 04:20 11/01/20 04:31 Zofran IVPUSH 11/01/20 04:21 4 mg ONETIME ONE Administration - Re-Assessments/Exams Free Text/Narrative Re-Assessment/Exam: 11/01/20 08:[address] Cisneros at change of shift. For some reason there was a significant delay in radiology reporting the CT of the abdomen and pelvis. CT of the abdomen pelvis was obtained with IV and oral contrast. Visualized lung bases showed nothing acute. Small amount of ascites is identified around the liver. Liver also shows irregular surface contour compatible with cirrhotic change. Mitral annulus calcification is also present. Spleen was noted to be enlarged with a length of 15.5 cm suggesting mild portal hypertension. Adrenal glands show no nodule. Pancreas appears within normal limits. Gallbladder is distended and shows multiple small calcified gallstones. Kidneys show contrast enhancement. Delayed images show contrast excretion into both nondilated distal ureters. Contrast is also noted within the urinary bladder. There appears to be a very minimal bladder diverticulum anteriorly. Small amount of ascites is also noted within the pelvis. Aorta shows atherosclerotic change without aneurysm. Small retroperitoneal lymph nodes are seen believed to be within normal limits. Slightly hazy mesenteric changes are noted likely from the ascites. Appendix is not visualized. No discrete pelvic masses appreciated. Bone window settings were reviewed which show scattered degenerative change within the spine. There is evidence of an annular rupture with air being seen within the thecal region at the L5-S1 level. There is a fat-containing anterior abdominal wall hernia also noted at the umbilicus. Minimal sigmoid diverticulosis is seen without definitive inflammatory change. 11/01/20 08:36 Urinalysis shows positive nitrate. Leukocyte Estrace however is negative. Many bacteria appreciated but there are no white cells or RBCs in the urine. No signs of active infection therefore no treatment is required. Patient knows that she has cirrhosis of the liver and she was told that is likely due to taking excessive amounts of Tylenol for back pain. This is highly unlikely. She has never used alcohol heavily. 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 Patient has multiple bruises on both upper extremities dorsal hands abdominal wall and obviously bleeds fairly easily which I believe is secondary to thrombocytopenia which is chronic for her. At this time on examination she has no further pain on deep palpation right upper quadrant of the abdomen or epigastrium. Therefore biliary colic has settled down on its own. Patient will be discharged on Levaquin 7 0.125 mg sublingual tabs to have on hand for recurrence of similar type pain. She will try and follow a fat-free diet. At this time neurosurgical consultation was obtained as she would require surgery in [place] as she is high risk due to her size, thrombocytopenia, ascites in the abdomen,. She would have to be where there is platelet availability. Departure - Departure Time of Disposition: 08:32 Condition: Fair Sepsis Event Note (ED) - Focused Exam Vital Signs: Vital Signs Temp Pulse Resp BP Pulse Ox 11/01/20 07:50 36.4 C 90 16 123/64 98 11/01/20 03:29 36.2 C 94 20 164/71 H 100 - My Orders Last 24 Hours: My Active Orders 11/01/20 07:40 Insert Silverio Catheter [Insert Urinary Catheter] [OM.PC] Stat Urinary Catheter Assessment [RC] ASDIRECTED - Assessment/Plan Last 24 Hours: My Active Orders 11/01/20 07:40 Insert Silverio Catheter [Insert Urinary Catheter] [OM.PC] Stat Urinary Catheter Assessment [RC] ASDIRECTED
[2020-11-01] MEDS ORDERED: Sodium Chloride 0.9% 1,000 ML IV SCH (04:30)
[2020-11-01] MEDS ORDERED: Iopamidol 612 MG/ML 100 ML Bottle IVPUSH ONE (06:54)
--- NOTE | 2020-11-01 08:08 | CT ---
CT abdomen and pelvis Technique: Multiple axial sections were obtained from above the dome of the diaphragm inferiorly through the pubic symphysis. Intravenous and oral contrast was utilized. Delayed images were also obtained. Reconstructed coronal and sagittal images were also obtained. Comparison: Prior limited right upper quadrant abdominal ultrasound performed earlier on same day (4:52 AM). Findings: Visualized lung bases show nothing acute. Small amount of ascites is identified around the liver. Liver also shows irregular surface contour compatible with cirrhotic change. Mitral annulus calcification is present. Spleen is enlarged with length of 15.5 cm. Adrenal glands show no nodule. Pancreas appears within normal limits. Gallbladder is distended and shows multiple small calcified gallstones. Kidneys show contrast enhancement. Delayed images show contrast excretion into both nondilated distal ureters. Contrast is also noted within the bladder. There appears to be a very minimal bladder diverticulum anteriorly. Small amount of ascites is also noted within the pelvis. Aorta shows atherosclerotic change without aneurysm. Small retroperitoneal lymph nodes are seen believed to be within normal limits. Slight hazy mesenteric changes are noted likely from the ascites. Appendix is not visualized. No discrete pelvic mass is appreciated. Bone window settings were reviewed which show scattered degenerative change within the spine. There is evidence of annular rupture with air being seen within the thecal region at the L5-S1 level. There is a fat-containing anterior abdominal wall hernia also noted. Minimal sigmoid diverticulosis is seen without definite inflammatory change. Impression: 1. Mild amount of ascites around the liver, mesentery and pelvis. 2. Liver contour is nodular compatible with cirrhosis. 3. Enlarged spleen. 4. Dilated gallbladder with multiple small calcified gallstones. 5. Other findings as noted above which are nonacute. Diagnostic code #3
--- NOTE | 2020-11-01 08:53 | US ---
Limited abdominal ultrasound: Multiple real-time images of the upper right abdomen were obtained. Technologist's notes: Poor ultrasound windows, suboptimal exam Findings: Liver contour is nodular. Gallbladder is distended showing multiple gallstones. CHD and CBD were not well seen. Proximal aorta shows no aneurysm. Inferior vena cava appears to be patent. Pancreas is not well appreciated. Main portal vein shows normal hepatopedal flow. Right kidney is not definitely appreciated with good certainty. This is felt to be due to slight rotation as noted on subsequent CT exam. Impression: 1. Nodular contour of the liver compatible with cirrhosis. 2. Gallbladder is distended showing multiple layering gallstones. Common bile duct and common hepatic duct are not appreciated. 3. No other gross abnormality is appreciated. Diagnostic code #3 I agree with preliminary report from [facility], finalized on 11/01/20, 6:33 AM [employer]
== END 2020-11-01 08:50 | disposition home or self-care (01) ==
LOC: JD.ED 03:17
DX: K74.60 Unspecified cirrhosis of liver (principal); R18.8 Other ascites; K80.50 Calculus of bile duct without cholangitis or cholecystitis without obstruction; D69.6 Thrombocytopenia, unspecified; E78.00 Pure hypercholesterolemia, unspecified; F41.9 Anxiety disorder, unspecified; F32.9 Major depressive disorder, single episode, unspecified; E03.9 Hypothyroidism, unspecified; E66.9 Obesity, unspecified; Z68.41 Body mass index [BMI] 40.0-44.9, adult; Z88.5 Allergy status to narcotic agent; Z79.899 Other long term (current) drug therapy; Z20.828 Contact with and (suspected) exposure to other viral communicable diseases
CPT/HCPCS: 36415; 74177; 76705; 80053; 81001; 83690; 83735; 85007; 85027; 96374; 99284; J2405; J7030; Q9967; U0002

== ENCOUNTER 2022-08-24 01:43 | Emergency (ER) | payer MEDICARE, OTHER ==
[2022-08-24] MEDS ORDERED: Ondansetron 4 MG Tab.DIS PO ONE (02:07)
[2022-08-24] MEDS ORDERED: HYDROmorphone 1 MG/ML Syringe IM ONE (02:07)
== END 2022-08-24 04:00 | disposition home or self-care (01) ==
LOC: JD.ED 01:43
DX: S82.851A Displaced trimalleolar fracture of right lower leg, initial encounter for closed fracture (principal); E78.00 Pure hypercholesterolemia, unspecified; Z88.5 Allergy status to narcotic agent; Z79.899 Other long term (current) drug therapy; Z90.710 Acquired absence of both cervix and uterus; W06.XXXA Fall from bed, initial encounter
CPT/HCPCS: 73590; 73610; 96372; 99284; A9270; J1170